=== PATIENT | female | born 1965 | race Two or more races ===

== ENCOUNTER 2017-11-17 08:20 | Outpatient (CLI) | payer OTHER | END 2017-11-17 08:24 | disposition home or self-care (01) | LOC: SONOGRAMA 08:20 | DX: E04.1 Nontoxic single thyroid nodule (principal) ==

== ENCOUNTER 2017-12-01 14:22 | Outpatient (CLI) | payer OTHER | END 2017-12-01 14:31 | disposition home or self-care (01) | LOC: RAD 14:22 | DX: C50.911 Malignant neoplasm of unspecified site of right female breast (principal) ==

== ENCOUNTER 2017-12-02 06:47 | Outpatient (CLI) | payer OTHER | END 2017-12-02 07:03 | disposition home or self-care (01) | LOC: LAB 06:47 | DX: C50.911 Malignant neoplasm of unspecified site of right female breast (principal) ==

== ENCOUNTER 2017-12-16 12:00 | Day surgery (SDC) | payer OTHER ==
[~2017-12-16] VITALS: Ht 172.7 cm; Wt 71.7 kg
== END 2017-12-16 19:46 | disposition home or self-care (01) ==
LOC: CIR.AMB 12:00 → SURH 13:00 → EDSTATUS 13:00 → CIR.AMB 19:46
DX: D05.11 Intraductal carcinoma in situ of right breast (principal); N62 Hypertrophy of breast

== ENCOUNTER 2018-05-15 08:10 | Day surgery (SDC) | payer OTHER ==
[~2018-05-15 08:10] MED LIST: CELEXA20 MG PO; FEMARA2.5 MG PO
[2018-05-15] MEDS ORDERED: NAPROXEN SODIU550 M1 PO (11:32)
== END 2018-05-15 15:30 | disposition home or self-care (01) ==
LOC: CIR.AMB 08:10 → CERT RX 13:15 → CIR.AMB 13:15
DX: N85.02 Endometrial intraepithelial neoplasia [EIN] (principal)

== ENCOUNTER 2018-07-20 13:06 | Inpatient (IN) | payer OTHER ==
[~2018-07-20] VITALS: Ht 172.7 cm; Wt 73.5 kg
[~2018-07-20 13:06] MED LIST changes: +NAPROXEN SODIU550 M1 PO
[2018-07-20] MEDS ORDERED: CLONAZEPAM1 MG PO (14:27)
[2018-07-25] MEDS ORDERED: ULTRACET PO (07:21)
[2018-07-25] MEDS ORDERED: SURFAK240 M1 PO (07:21)
== END 2018-07-25 11:10 | disposition home or self-care (01) | DRG 741 ==
LOC: O/R 07-24 06:25 → SURH 07-24 10:00 → OB/GYN 07-24 13:11
PROVIDERS: ADMIT Obstetrics & Gynecology Gynecology
PROC: 0UT7FZZ Resection of Bilateral Fallopian Tubes, Via Natural or Artificial Opening With Percutaneous Endoscopic Assistance (ICD-10-PCS; 2018-07-24)
PROC: 0UT2FZZ Resection of Bilateral Ovaries, Via Natural or Artificial Opening With Percutaneous Endoscopic Assistance (ICD-10-PCS; 2018-07-24)
PROC: 0UT9FZZ Resection of Uterus, Via Natural or Artificial Opening With Percutaneous Endoscopic Assistance (ICD-10-PCS; principal; 2018-07-24 10:00)
DX: C54.1 Malignant neoplasm of endometrium (principal); D25.1 Intramural leiomyoma of uterus; N83.292 Other ovarian cyst, left side; Z85.3 Personal history of malignant neoplasm of breast